=== PATIENT | male | born 1985 | race Caucasian/White ===

== ENCOUNTER 2017-05-27 08:29 | Day surgery (SDC) | payer OTHER ==
[2017-05-27] MEDS ORDERED: Metoclopramide 10 MG/2 ML SDV IVPUSH ONE (09:08)
[2017-05-27] MEDS ORDERED: ceFAZolin 2 GM in Premix Bag 1 BAG IV ONE (09:08)
[2017-05-27] MEDS ORDERED: HYDROmorphone 1 MG/ML Syringe IVPUSH ONE (09:08)
[2017-05-27] MEDS ORDERED: Diphtheria,Pertussis(Acell),Tetanus Vaccine 0.5 ML SDV IM ONE (09:08)
--- NOTE | 2017-05-27 09:13 | EDM.PDOC ---
ED HPI GENERAL MEDICAL PROBLEM - General Chief Complaint: Upper Extremity Injury/Pain Stated Complaint: HAND INJURY Time Seen by Provider: 05/27/17 09:07 Source of Information: Reports: Patient History Limitations: Reports: No Limitations - History of Present Illness INITIAL COMMENTS - FREE TEXT/NARRATIVE: 32-year-old male attends the ED after work related injuries. 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 States mechanical failure with cables on the elevator occurred. This resulted in his hand getting caught. He was wearing a glove. Injuries are to the distal aspects of the right third fourth and fifth fingers. Of note he is right-hand dominant. Doesn't know when his last tetanus toxoid was updated. Injury occurred approximately an hour and a half ago Is meal was at 0430 this a.m. Had a piece of pizza. Denies any other injuries. Denies any allergies. Onset: Today Onset Date: 05/27/17 Onset Time: 07:30 Duration: Hour(s): Location: Reports: Upper Extremity, Right Quality: Reports: Ache (Right hand involving the distal third fourth and fifth fingers), Stabbing, Throbbing Severity: Moderate Improves with: Reports: None Worsens with: Reports: Movement Context: Reports: Trauma (Crush), Other ( type injuries and cables.). 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 [No Known Home Meds] 05/27/17 [History] Past Medical History - Past Health History Medical/Surgical History: Denies Medical/Surgical History Cardiovascular History: Reports: None Respiratory History: Reports: Asthma Gastrointestinal History: Reports: None Genitourinary History: Reports: None Musculoskeletal History: Reports: None Neurological History: Reports: None Dermatologic History: Reports: None Social & Family History - Tobacco Use Smoking Status *Q: Never Smoker Second Hand Smoke Exposure: No - Caffeine Use Caffeine Use: Reports: None - Recreational Drug Use Recreational Drug Use: No - Living Situation & Occupation Occupation: Employed Review of Systems - Review of Systems Review Of Systems: See Below Constitutional: Reports: No Symptoms Eyes: Reports: No Symptoms Ears: Reports: No Symptoms Nose: Reports: No Symptoms Mouth/Throat: Reports: No Symptoms Respiratory: Reports: No Symptoms Cardiovascular: Reports: No Symptoms GI/Abdominal: Reports: No Symptoms Genitourinary: Reports: No Symptoms Musculoskeletal: Reports: Hand Pain Skin: Reports: No Symptoms (See history of present illness) Neurological: Reports: No Symptoms Psychiatric: Reports: No Symptoms ED EXAM, GENERAL - Physical Exam Exam: See Below Exam Limited By: No Limitations General Appearance: Alert, WD/WN, Mild Distress Eye Exam: Bilateral Eye: Normal Inspection Throat/Mouth: Normal Inspection, Normal Lips, Normal Teeth, Normal Oropharynx Head: Atraumatic, Normocephalic Neck: Normal Inspection, Supple, Non-Tender, Full Range of Motion. No: Lymphadenopathy (L), Lymphadenopathy (R) Respiratory/Chest: No Respiratory Distress, Lungs Clear, Normal Breath Sounds, No Accessory Muscle Use Cardiovascular: Normal Peripheral Pulses, Regular Rate, Rhythm, No Edema, No Gallop, No Murmur, No Rub, Other (Mildly hypertensive on arrival.) Peripheral Pulses: 3+: Radial (L), Radial (R) GI/Abdominal: Normal Bowel Sounds, Soft, Non-Tender, No Organomegaly Back Exam: Normal Inspection, Full Range of Motion. No: CVA Tenderness (L), CVA Tenderness (R) Extremities: Other (Examination of the right hand shows completed amputations of the distal third fourth and fifth fingers. The fingernail still intact on the third finger but the pulp space is absent. The fingernails are absent on the other 2 fingers. He will need Station revision of all 3 fingers.) Neurological: Alert, Oriented, CN II-XII Intact, Normal Cognition Psychiatric: Normal Affect, Normal Mood Skin Exam: Warm, Dry, Intact, Normal Color, No Rash Course - Vital Signs Last Recorded V/S: Last Vital Signs Temp 36.9 C 05/27/17 08:35 Pulse 62 05/27/17 08:35 Resp 18 05/27/17 10:55 BP 139/102 H 05/27/17 08:35 Pulse Ox 99 05/27/17 10:55 - Orders/Labs/Meds Orders: Active Orders 24 hr Category Date Time Status Vaccines to be Administered [RC] PER UNIT ROUTINE Care 05/27/17 09:08 Active Dextrose 5%-0.9% NaCl [Dextrose 5%-Normal Saline] 1,000 Med 05/27/17 09:15 Active ml IV ASDIRECTED Schedule Procedure [COMM] Stat Oth 05/27/17 11:16 Ordered Medication Orders Dextrose/Sodium Chloride (Dextrose 5%-Normal Saline) 1,000 mls @ 250 mls/hr IV ASDIRECTED [facility] Last Admin: 05/27/17 10:02 Dose: 250 mls/hr Labs: Laboratory Tests 05/27/17 05/27/17 05/27/17 Range/Units 08:40 08:40 09:00 WBC 5.63 (4.23-9.07) K/mm3 RBC 5.16 (4.63-6.08) M/mm3 Hgb 14.6 (13.7-17.5) gm/L Hct 44.9 (40.1-51.0) % MCV 87.0 (79.0-92.2) fl MCH 28.3 (25.7-32.2) pg MCHC 32.5 (32.2-35.5) g/dl RDW Std Deviation 40.1 (35.1-43.9) fL Plt Count 221 (163-337) K/mm3 MPV 10.8 (9.4-12.3) fl Neutrophils % (Manual) 50 (40-60) % Band Neutrophils % 2 (0-10) % Lymphocytes % (Manual) 41 H (20-40) % Atypical Lymphs % 0 % Monocytes % (Manual) 4 (2-10) % Eosinophils % (Manual) 2 (0.8-7.0) % Basophils % (Manual) 1 (0.2-1.2) Platelet Estimate Adequate RBC Morph Comment Normal Sodium 145 (136-145) mEq/L Potassium 3.9 (3.5-5.1) mEq/L Chloride 109 H (98-107) mEq/L Carbon Dioxide 25 (21-32) mEq/L Anion Gap 14.9 (5-15) BUN 18 (7-18) mg/dL Creatinine 1.2 (0.7-1.3) mg/dL Est Cr Clr Drug Dosing 103.70 mL/min Estimated GFR (MDRD) > 60 (>60) mL/min BUN/Creatinine Ratio 15.0 (14-18) Glucose 96 (74-106) mg/dL Calcium 9.0 (8.5-10.1) mg/dL Total Bilirubin 0.5 (0.2-1.0) mg/dL AST 38 H (15-37) U/L ALT 65 H (16-63) U/L Alkaline Phosphatase 85 (46-116) U/L Total Protein 7.0 (6.4-8.2) g/dl Albumin 3.8 (3.4-5.0) g/dl Globulin 3.2 gm/dL Albumin/Globulin Ratio 1.2 (1-2) Urine Color (Yellow) Urine Appearance (Clear) Urine pH (5.0-8.0) Ur Specific [place] (1.005-1.030) Urine Protein (Negative) Urine Glucose (UA) (Negative) Urine Ketones (Negative) Urine Occult Blood (Negative) Urine Nitrite (Negative) Urine Bilirubin (Negative) Urine Urobilinogen (0.2-1.0) Ur Leukocyte Esterase (Negative) Urine RBC (0-5) /hpf Urine WBC (0-5) /hpf Ur Epithelial Cells (0-5) /hpf Urine Bacteria (FEW) /hpf Urine Mucus (FEW) /hpf Urine Opiates Screen Negative (NEGATIVE) Ur Buprenorphine Scrn Negative (NEGATIVE) Ur Oxycodone Screen Negative (NEGATIVE) Urine Methadone Screen Negative (NEGATIVE) Ur Propoxyphene Screen Negative (NEGATIVE) Ur Barbiturates Screen Negative (NEGATIVE) Ur Tricyclics Screen Negative (NEGATIVE) Ur Phencyclidine Scrn Negative (NEGATIVE) Ur Amphetamine Screen Negative (NEGATIVE) U Methamphetamines Scrn Negative (NEGATIVE) U Benzodiazepines Scrn Negative (NEGATIVE) U Cocaine Metab Screen Negative (NEGATIVE) U Marijuana (THC) Screen Negative (NEGATIVE) 05/27/17 Range/Units 09:00 WBC (4.23-9.07) K/mm3 RBC (4.63-6.08) M/mm3 Hgb (13.7-17.5) gm/L Hct (40.1-51.0) % MCV (79.0-92.2) fl MCH (25.7-32.2) pg MCHC (32.2-35.5) g/dl RDW Std Deviation (35.1-43.9) fL Plt Count (163-337) K/mm3 MPV (9.4-12.3) fl Neutrophils % (Manual) (40-60) % Band Neutrophils % (0-10) % Lymphocytes % (Manual) (20-40) % Atypical Lymphs % % Monocytes % (Manual) (2-10) % Eosinophils % (Manual) (0.8-7.0) % Basophils % (Manual) (0.2-1.2) Platelet Estimate RBC Morph Comment Sodium (136-145) mEq/L Potassium (3.5-5.1) mEq/L Chloride (98-107) mEq/L Carbon Dioxide (21-32) mEq/L Anion Gap (5-15) BUN (7-18) mg/dL Creatinine (0.7-1.3) mg/dL Est Cr Clr Drug Dosing mL/min Estimated GFR (MDRD) (>60) mL/min BUN/Creatinine Ratio (14-18) Glucose (74-106) mg/dL Calcium (8.5-10.1) mg/dL Total Bilirubin (0.2-1.0) mg/dL AST (15-37) U/L ALT (16-63) U/L Alkaline Phosphatase (46-116) U/L Total Protein (6.4-8.2) g/dl Albumin (3.4-5.0) g/dl Globulin gm/dL Albumin/Globulin Ratio (1-2) Urine Color Yellow (Yellow) Urine Appearance Clear (Clear) Urine pH 6.5 (5.0-8.0) Ur Specific [place] 1.025 (1.005-1.030) Urine Protein Negative (Negative) Urine Glucose (UA) Negative (Negative) Urine Ketones Negative (Negative) Urine Occult Blood Negative (Negative) Urine Nitrite Negative (Negative) Urine Bilirubin Negative (Negative) Urine Urobilinogen 0.2 (0.2-1.0) Ur Leukocyte Esterase Negative (Negative) Urine RBC Not seen (0-5) /hpf Urine WBC 0-5 (0-5) /hpf Ur Epithelial Cells Not seen (0-5) /hpf Urine Bacteria Not seen (FEW) /hpf Urine Mucus Few (FEW) /hpf Urine Opiates Screen (NEGATIVE) Ur Buprenorphine Scrn (NEGATIVE) Ur Oxycodone Screen (NEGATIVE) Urine Methadone Screen (NEGATIVE) Ur Propoxyphene Screen (NEGATIVE) Ur Barbiturates Screen (NEGATIVE) Ur Tricyclics Screen (NEGATIVE) Ur Phencyclidine Scrn (NEGATIVE) Ur Amphetamine Screen (NEGATIVE) U Methamphetamines Scrn (NEGATIVE) U Benzodiazepines Scrn (NEGATIVE) U Cocaine Metab Screen (NEGATIVE) U Marijuana (THC) Screen (NEGATIVE) Meds: Medications Generic Name Dose Route Start Last Admin Trade Name Freq PRN Reason Stop Dose Admin Dextrose/Sodium Chloride 1,000 mls @ 250 mls/hr 05/27/17 09:15 05/27/17 10:02 Dextrose 5%-Normal Saline IV 250 mls/hr ASDIRECTED RADHA Administration Discontinued Medications Generic Name Dose Route Start Last Admin Trade Name Freq PRN Reason Stop Dose Admin Diphtheria/Tetanus/Acell Pertussis 0.5 ml 05/27/17 09:08 05/27/17 09:23 Adacel IM 05/27/17 09:09 0.5 ml .ONCE ONE Administration Famotidine 20 mg 05/27/17 10:55 Pepcid IVPUSH 05/27/17 10:56 ONETIME ONE Fentanyl Confirm 05/27/17 11:17 Sublimaze Administered 05/27/17 11:18 Dose 250 mcg .ROUTE .STK-MED ONE Hydromorphone HCl 1 mg 05/27/17 09:08 05/27/17 09:26 Dilaudid IVPUSH 05/27/17 09:09 1 mg ONETIME ONE Administration Hydromorphone HCl 0.5 mg 05/27/17 10:34 05/27/17 10:44 Dilaudid IVPUSH 05/27/17 10:35 0.5 mg NOW STA Administration Cefazolin Sodium/Dextrose 2 gm 50 mls @ 100 mls/hr 05/27/17 09:08 05/27/17 09 :23 / Premix IV 05/27/17 09:37 100 mls/hr ONETIME ONE Administration Lidocaine HCl Confirm 05/27/17 11:17 Xylocaine-Mpf 1% Administered 05/27/17 11:18 Dose 4 mls @ as directed .ROUTE .STK-MED ONE Metoclopramide HCl 10 mg 05/27/17 09:08 05/27/17 09:26 Reglan IVPUSH 05/27/17 09:09 10 mg ONETIME ONE Administration Midazolam HCl Confirm 05/27/17 11:17 Versed 1 Mg/Ml Administered 05/27/17 11:18 Dose 2 mg .ROUTE .STK-MED ONE Propofol Confirm 05/27/17 11:13 Diprivan 20 Ml Administered 05/27/17 11:14 Dose 400 mg .ROUTE .STK-MED ONE Succinylcholine Chloride Confirm 05/27/17 11:17 Quelicin Administered 05/27/17 11:18 Dose 200 mg .ROUTE .STK-MED ONE - Radiology Interpretation Free Text/Narrative:: 32-year-old male presents to the ED with acute work-related injuries to his right distal hand. His hand became entangled and cables pulling the elevator up on a local the ring. This resulted in a crush type injuries to the distal aspect of the right third fourth and fingers with completed applications of the distal tips. The nail still intact on the third finger but the pulp spaces damaged. He will need review and dictation revision of all 3 fingers. T gap will be updated. IV started at 150 mils per hour. He will be given Ancef 1 g IV Dilaudid 1 mg IV and Reglan 10 mg IV. Last meal was around 0 4:30 5:00 this morning. - Re-Assessments/Exams Free Text/Narrative Re-Assessment/Exam: 05/27/17 09:50 x-ray confirms defecation through the mid shafts of the distal phalange ease of the fourth and fifth fingers on the right hand and the ulnar aspect of the distal phalanx of the third finger. I will speak with Dr. Abebe on-call orthopedic surgeon in this regard. 05/27/17: 10:25; spoke with Dr. Bates and he will try and finish up his clinic and then attended the patient in the ED with a view to arranging operative time to repair this fellows amputated digits right hand. Patient is asking for more pain medication will be given Dilaudid [address] Bates has requested that he soak in some Betadine infused saline for 510 minutes and then dressings applied. 05/27/17 11:19 Dr. Abebe is in the department at this time. Plan will be to take the patient to the OR for repeat application revision of the third fourth and fifth fingers on the right hand. Departure - Departure Time of Disposition: 11:23 Disposition: DC/Tfer to [facility] Condition: Fair Clinical Impression: Traumatic amputation of tip of finger of right hand - Discharge Information - My Orders Last 24 Hours: My Active Orders 05/27/17 09:08 Vaccines to be Administered [RC] PER UNIT ROUTINE 05/27/17 09:15 Dextrose 5%-0.9% NaCl [Dextrose 5%-Normal Saline] 1,000 ml IV ASDIRECTED - Assessment/Plan Last 24 Hours: My Active Orders 05/27/17 09:08 Vaccines to be Administered [RC] PER UNIT ROUTINE 05/27/17 09:15 Dextrose 5%-0.9% NaCl [Dextrose 5%-Normal Saline] 1,000 ml IV ASDIRECTED
[2017-05-27] MEDS ORDERED: Dextrose 5%-0.9% NaCl 1,000 ML IV SCH (09:15)
--- NOTE | 2017-05-27 10:26 | CR ---
Right hand: Four views of the right hand were obtained. Comparison: No previous study. Soft tissue and bony amputation is seen within the distal aspects of the third through fifth fingers. Small detached bony fragment is within the distal soft tissues within all 3 digits. No additional abnormality is noted. Impression: 1. Soft tissue and bony amputation within the distal third through fifth fingers. Small detached bony density remains within the distal soft tissues of all 3 digits. 2. No additional finding is seen. Diagnostic code #3
[2017-05-27] MEDS ORDERED: HYDROmorphone 0.5 MG/0.5 ML Syringe IVPUSH STA (10:34)
[2017-05-27] MEDS ORDERED: Famotidine 20 MG/2 ML SDV IVPUSH ONE (10:55)
--- NOTE | 2017-05-27 10:55 | PCM.PREANE ---
Preanesthetic Assessment - Anesthesia/Transfusion/Family Hx Anesthesia History: Prior Anesthesia Without Reaction Family History of Anesthesia Reaction: No Transfusion History: No Prior Transfusion(s) Intubation History: Unknown - Review of Systems General: No Symptoms Pulmonary: No Symptoms, Other (Asthma, controlled. ) Gastrointestinal: No Symptoms Neurological: No Symptoms Other: Reports: None - Physical Assessment NPO Status Date: 05/27/17 NPO Status Time: 04:30 (Pizza) O2 Sat by Pulse Oximetry: 99 Respiratory Rate: 18 Vital Signs: Last Vital Signs Temp 36.9 C 05/27/17 08:35 Pulse 62 05/27/17 08:35 Resp 18 05/27/17 08:35 BP 139/102 H 05/27/17 08:35 Pulse Ox 99 05/27/17 08:35 Height: 1.88 m Weight: 90.718 kg ASA Class: 1E Mental Status: Alert & Oriented x3 Airway Class: Mallampati = 1 Dentition: Reports: Normal Dentition Thyro-Mental Finger Breadths: 3 Mouth Opening Finger Breadths: 3 ROM/Head Extension: Full Lungs: Clear to Auscultation, Normal Respiratory Effort Cardiovascular: Regular Rate, Regular Rhythm - Lab Values: Laboratory Last Values WBC 5.63 K/mm3 (4.23-9.07) 05/27/17 08:40 RBC 5.16 M/mm3 (4.63-6.08) 05/27/17 08:40 Hgb 14.6 gm/L (13.7-17.5) 05/27/17 08:40 Hct 44.9 % (40.1-51.0) 05/27/17 08:40 MCV 87.0 fl (79.0-92.2) 05/27/17 08:40 MCH 28.3 pg (25.7-32.2) 05/27/17 08:40 MCHC 32.5 g/dl (32.2-35.5) 05/27/17 08:40 RDW Std Deviation 40.1 fL (35.1-43.9) 05/27/17 08:40 Plt Count 221 K/mm3 (163-337) 05/27/17 08:40 MPV 10.8 fl (9.4-12.3) 05/27/17 08:40 Neutrophils % (Manual) 50 % (40-60) 05/27/17 08:40 Band Neutrophils % 2 % (0-10) 05/27/17 08:40 Lymphocytes % (Manual) 41 % (20-40) H 05/27/17 08:40 Atypical Lymphs % 0 % 05/27/17 08:40 Monocytes % (Manual) 4 % (2-10) 05/27/17 08:40 Eosinophils % (Manual) 2 % (0.8-7.0) 05/27/17 08:40 Basophils % (Manual) 1 (0.2-1.2) 05/27/17 08:40 Platelet Estimate Adequate 05/27/17 08:40 RBC Morph Comment Normal 05/27/17 08:40 Sodium 145 mEq/L (136-145) 05/27/17 08:40 Potassium 3.9 mEq/L (3.5-5.1) 05/27/17 08:40 Chloride 109 mEq/L (98-107) H 05/27/17 08:40 Carbon Dioxide 25 mEq/L (21-32) 05/27/17 08:40 Anion Gap 14.9 (5-15) 05/27/17 08:40 BUN 18 mg/dL (7-18) 05/27/17 08:40 Creatinine 1.2 mg/dL (0.7-1.3) 05/27/17 08:40 Est Cr Clr Drug Dosing 103.70 mL/min 05/27/17 08:40 Estimated GFR (MDRD) > 60 mL/min (>60) 05/27/17 08:40 BUN/Creatinine Ratio 15.0 (14-18) 05/27/17 08:40 Glucose 96 mg/dL (74-106) 05/27/17 08:40 Calcium 9.0 mg/dL (8.5-10.1) 05/27/17 08:40 Total Bilirubin 0.5 mg/dL (0.2-1.0) 05/27/17 08:40 AST 38 U/L (15-37) H 05/27/17 08:40 ALT 65 U/L (16-63) H 05/27/17 08:40 Alkaline Phosphatase 85 U/L (46-116) 05/27/17 08:40 Total Protein 7.0 g/dl (6.4-8.2) 05/27/17 08:40 Albumin 3.8 g/dl (3.4-5.0) 05/27/17 08:40 Globulin 3.2 gm/dL 05/27/17 08:40 Albumin/Globulin Ratio 1.2 (1-2) 05/27/17 08:40 Urine Color Yellow (Yellow) 05/27/17 09:00 Urine Appearance Clear (Clear) 05/27/17 09:00 Urine pH 6.5 (5.0-8.0) 05/27/17 09:00 Ur Specific [place] 1.025 (1.005-1.030) 05/27/17 09:00 Urine Protein Negative (Negative) 05/27/17 09:00 Urine Glucose (UA) Negative (Negative) 05/27/17 09:00 Urine Ketones Negative (Negative) 05/27/17 09:00 Urine Occult Blood Negative (Negative) 05/27/17 09:00 Urine Nitrite Negative (Negative) 05/27/17 09:00 Urine Bilirubin Negative (Negative) 05/27/17 09:00 Urine Urobilinogen 0.2 (0.2-1.0) 05/27/17 09:00 Ur Leukocyte Esterase Negative (Negative) 05/27/17 09:00 Urine RBC Not seen /hpf (0-5) 05/27/17 09:00 Urine WBC 0-5 /hpf (0-5) 05/27/17 09:00 Ur Epithelial Cells Not seen /hpf (0-5) 05/27/17 09:00 Urine Bacteria Not seen /hpf (FEW) 05/27/17 09:00 Urine Mucus Few /hpf (FEW) 05/27/17 09:00 Urine Opiates Screen Negative (NEGATIVE) 05/27/17 09:00 Ur Buprenorphine Scrn Negative (NEGATIVE) 05/27/17 09:00 Ur Oxycodone Screen Negative (NEGATIVE) 05/27/17 09:00 Urine Methadone Screen Negative (NEGATIVE) 05/27/17 09:00 Ur Propoxyphene Screen Negative (NEGATIVE) 05/27/17 09:00 Ur Barbiturates Screen Negative (NEGATIVE) 05/27/17 09:00 Ur Tricyclics Screen Negative (NEGATIVE) 05/27/17 09:00 Ur Phencyclidine Scrn Negative (NEGATIVE) 05/27/17 09:00 Ur Amphetamine Screen Negative (NEGATIVE) 05/27/17 09:00 U Methamphetamines Scrn Negative (NEGATIVE) 05/27/17 09:00 U Benzodiazepines Scrn Negative (NEGATIVE) 05/27/17 09:00 U Cocaine Metab Screen Negative (NEGATIVE) 05/27/17 09:00 U Marijuana (THC) Screen Negative (NEGATIVE) 05/27/17 09:00 - Allergies Allergies/Adverse Reactions: Allergies Allergy/AdvReac Type Severity Reaction Status Date / Time No Known Allergies Allergy Verified 05/27/17 08:35 - Acknowledgements Anesthesia Type Planned: General Anesthesia Pt an Appropriate Candidate for the Planned Anesthesia: Yes Alternatives and Risks of Anesthesia Discussed w Pt/Guardian: Yes Pt/Guardian Understands and Agrees with Anesthesia Plan: Yes PreAnesthesia Questionnaire - Past Health History Medical/Surgical History: Denies Medical/Surgical History Cardiovascular History: Reports: None Respiratory History: Reports: Asthma Gastrointestinal History: Reports: None Genitourinary History: Reports: None Musculoskeletal History: Reports: None Neurological History: Reports: None Dermatologic History: Reports: None - SUBSTANCE USE Smoking Status *Q: Never Smoker Second Hand Smoke Exposure: No Recreational Drug Use History: No - HOME MEDS Home Medications: Home Meds . [No Known Home Meds] 05/27/17 [History] - CURRENT (IN HOUSE) MEDS Current Meds: Current Medications Dextrose/Sodium Chloride (Dextrose 5%-Normal Saline) 1,000 mls @ 250 mls/hr IV ASDIRECTED [facility] Last Admin: 05/27/17 10:02 Dose: 250 mls/hr Discontinued Medications Diphtheria/Tetanus/Acell Pertussis (Adacel) 0.5 ml IM .ONCE ONE Stop: 05/27/17 09:09 Last Admin: 05/27/17 09:23 Dose: 0.5 ml Hydromorphone HCl (Dilaudid) 1 mg IVPUSH ONETIME ONE Stop: 05/27/17 09:09 Last Admin: 05/27/17 09:26 Dose: 1 mg Hydromorphone HCl (Dilaudid) 0.5 mg IVPUSH NOW STA Stop: 05/27/17 10:35 Last Admin: 05/27/17 10:44 Dose: 0.5 mg Cefazolin Sodium/Dextrose 2 gm (/ Premix) 50 mls @ 100 mls/hr IV ONETIME ONE Stop: 05/27/17 09:37 Last Admin: 05/27/17 09:23 Dose: 100 mls/hr Metoclopramide HCl (Reglan) 10 mg IVPUSH ONETIME ONE Stop: 05/27/17 09:09 Last Admin: 05/27/17 09:26 Dose: 10 mg
[2017-05-27] MEDS ORDERED: Propofol 200 MG/20 ML SDV ONE (11:13)
[2017-05-27] MEDS ORDERED: fentaNYL 250 MCG/5 ML SDV ONE (11:17)
[2017-05-27] MEDS ORDERED: Midazolam 1 MG/ML 2 ML SDV ONE (11:17)
[2017-05-27] MEDS ORDERED: Succinylcholine 200 MG/10 ML MDV ONE (11:17)
[2017-05-27] MEDS ORDERED: Lidocaine 1% 4 ML ONE (11:17)
[2017-05-27] MEDS ORDERED: Acetaminophen/oxyCODONE 325-5 MG Tab PO PRN (11:31)
[2017-05-27] MEDS ORDERED: Ondansetron 4 MG/2 ML SDV IVPUSH PRN (11:31)
[2017-05-27] MEDS ORDERED: HYDROmorphone 0.5 MG/0.5 ML Syringe IVPUSH PRN ×2 (11:31→16:21)
[2017-05-27] MEDS ORDERED: cefTRIAXone 1 GM in Sodium Chloride 0.9% 100 ML IV ONE ×2 (11:31→18:13)
[2017-05-27] MEDS ORDERED: Ketorolac 30 MG/ML SDV IVPUSH PRN (11:31)
[2017-05-27] MEDS ORDERED: Morphine 15 MG Tab.ER PO SCH (11:45)
[2017-05-27] MEDS: cefTRIAXone 1 GM in Sodium Chloride 0.9% 100 ML IV ONE ×2 (11:58→18:26)
[2017-05-27] MEDS ORDERED: Iodine/Sodium Iodide 2% Tincture 30 ML Bottle ONE (13:30)
[2017-05-27] MEDS ORDERED: ceFAZolin 1 GM Vial ONE (16:05)
[2017-05-27] MEDS ORDERED: HYDROmorphone 1 MG/ML Syringe ONE (16:13)
[2017-05-27] MEDS ORDERED: fentaNYL 100 MCG/2 ML SDV IVPUSH PRN (16:21)
[2017-05-27] MEDS ORDERED: Haloperidol Lactate 5 MG/ML SDV IVPUSH ONE (16:21)
[2017-05-27] MEDS ORDERED: Ondansetron 4 MG/2 ML SDV ONE (16:30)
[2017-05-27] MEDS ORDERED: Dexamethasone 4 MG/ML 5 ML MDV ONE (16:30)
[2017-05-27] MEDS: Bupivacaine 0.5% 30 ML SDV ONE ×2 (16:32→17:19)
[2017-05-27] MEDS ORDERED: Lactated Ringers 1,000 ML ONE (17:17)
--- NOTE | 2017-05-27 17:55 | PCM.POSTAN ---
POST ANESTHESIA ASSESSMENT - MENTAL STATUS Mental Status: Somnolent - VITAL SIGNS Pulse Rate: 72 SaO2: 99 Resp Rate: 11 Blood Pressure: 133/88 Temperature: 37.3 C - RESPIRATORY Respiratory Status: Respiratory Rate WNL, Airway Patent, O2 Saturation Stable, Supplemental Oxygen - CARDIOVASCULAR CV Status: Pulse Rate WNL, Blood Pressure Stable - GASTROINTESTINAL GI Status: No Symptoms - PAIN Pain Score: 0 - POST OP HYDRATION Hydration Status: Adequate & Stable
--- NOTE | 2017-05-27 18:15 | HP ---
DATE OF ADMISSION: 05/27/2017 HISTORY: This is the first orthopedic outpatient admission for surgery for this 32-year- old male who is being admitted with acute crush injury and traumatic amputation of the distal tips of the third, fourth, and fifth digits of the right hand. The patient suffered this injury while working today when his fingers became crushed in the worksite area, where after the crush injury, the patient was brought into the emergency room, evaluated, and is now being scheduled for outpatient surgical treatment in the form of irrigation and debridement and repair and reconstruction of the distal amputation sites of the third, fourth, and fifth digits of the right hand. The patient suffered no other injury other than this hand injury, and the procedure was outlined to him. He understands the procedure and also the high risk of possible infection with this type of injury. He understands that and has consented to the surgery. ALLERGIES: No known drug allergies. PAST MEDICAL HISTORY: He has been a relatively healthy 32-year-old male who had a previous history of asthma, where he states he uses inhaler occasionally. CURRENT MEDICATIONS: Currently, on no medications. PAST SURGICAL HISTORY: Positive, previous appendectomy with no anesthesia problems or complications. SOCIAL HISTORY: The patient is a nonsmoker and nondrinker. Denies any bleeding or blood clot history. PHYSICAL EXAMINATION: GENERAL: Today, reveals a well-developed, well-nourished 32-year-old male in [id number] distress HEAD, EYES, EARS, NOSE AND THROAT: Normocephalic. NECK: Supple. CHEST: Clear. COR: Regular rate. ABDOMEN: Soft. : Intact. EXTREMITIES: Examination of the right hand reveals complete loss of the soft tissues at the nail level of the small finger and ring finger of the right hand along with severe laceration of the distal tip of the middle finger at the nail level. RADIOGRAPHIC STUDIES: The x-rays reveal soft tissue loss of the distal portion of the ring finger and small finger of the right hand and traumatic soft tissue disruption of the distal tip of the middle finger. OVERALL IMPRESSION: Crush injury with traumatic amputation, complete of the fourth and fifth digits of the right hand and partial to severe of the distal tip of the third digit of the right hand. PLAN: Plan is for the patient to undergo surgical irrigation and debridement and reconstructive surgery of the right hand amputation site and crush injury lacerations. Procedure has been outlined to the patient. He understands the procedure and has consented to surgery. TAHIR /[id number]
--- NOTE | 2017-05-28 08:42 | CONS ---
CONSULTING PHYSICIAN: David Abebe MD DATE OF CONSULTATION: 05/27/2017 HISTORY: This is the Orthopedic consultation called for by Dr. Alcantara, emergency room physician, for evaluation of a right hand crush injury with severe laceration and traumatic amputation of the distal portions of the third, fourth, and fifth digits of the hand. The patient suffered injury this morning while working and after the injury was brought in the emergency room for evaluation. He is now being consulted for possible surgical treatment of the amputations secondary to the crush injury. He notes no other injuries to the hand other than the traumatic injury from the work site itself. ALLERGIES: No known drug allergies. PAST MEDICAL HISTORY: He has been a relatively healthy 32-year-old male, currently on occasional asthma inhaler. PAST SURGICAL HISTORY: Positive, previous appendix. Notes no anesthesia problems or complications. PHYSICAL EXAMINATION: Examination of the right hand reveals a crush injury with lacerations and loss of the distal portion of the small finger and ring finger of the right hand and partial to almost full amputation of the distal tip of the middle finger of the right hand. RADIOGRAPHIC STUDIES: The x-rays were reviewed. This shows a loss of the soft tissue envelope of the distal tip of the ring finger and small finger at the middle and distal phalanx level and also soft tissue changes involving the distal tip of the middle finger. OVERALL IMPRESSION: Crush injury of the right hand with traumatic amputation of the distal tip of the small digit ring finger and partial middle finger. PLAN: Plan will be for the patient to be scheduled for outpatient surgical treatment. The procedure was outlined in the emergency room with the patient who understands and consented to it. MMODAL /[id number]
--- NOTE | 2017-05-28 08:42 | OR ---
DATE OF OPERATION: 05/27/2017 SURGEON: David Abebe MD PREOPERATIVE DIAGNOSIS: 1. Traumatic crush injury, distal amputation, right small finger at nail bed level. 2. Traumatic crush injury with traumatic amputation distal tip right ring finger nail bed level. 3. Crush injury with traumatic injury to the distal tip of right middle finger. POSTOPERATIVE DIAGNOSIS: 1. Traumatic crush injury, distal amputation, right small finger at nail bed level. 2. Traumatic crush injury with traumatic amputation distal tip right ring finger nail bed level. 3. Crush injury with traumatic injury to the distal tip of right middle finger. ANESTHESIA: General. OPERATION PERFORMED: 1. Irrigation, debridement, reconstruction, revision of amputation site right small finger. 2. Irrigation, debridement, revision, and reconstruction of distal amputation site ring finger. 3. Irrigation, debridement, revision, and reconstruction surgery of distal tip right middle finger. DESCRIPTION OF PROCEDURE: The patient was taken to the operative room in a supine position, placed under general anesthesia. The right arm was thoroughly scrubbed. 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 Meticulous scrubbing was carried out to remove as much oil as possible. Once that was accomplished, then a standard prepping was carried out for an open injury, and after prepping, the operation then proceeded with draping and then the surge lavage was then used to clean the distal tips of the fingers. With the spray being placed on each tip and scrubbed, any remaining type of debris and contamination was hopefully removed. Once that was completed, the operation began with the middle finger where the amputation had gone through the tip right at the level of the distal end of the distal phalanx which was easily seen. The nail bed was then trimmed back slightly in the nail itself. The flap that remained was trimmed such that it could be brought up and sutured to the undersurface of the nail. Once that was completed, the operation then proceeded to the ring finger where the amputation went through at the level of the beginning of the nail bed area with complete loss of the nail. The phalanx was exposed and comminuted. The operation had proceeded with excision of the nail bed by sharp dissection. Once that was completed, the midportion of the distal phalanx was then removed such that the remaining flap of soft tissues on the volar aspect could be brought up and cut to cover the end of the bone. Once the bone was removed, again irrigation was then used to allow to thoroughly clean. The skin was then sutured to the dorsal surface at the level of the removal of the nail bed. This closure proceeded very nicely. The dog-ears were removed and closed, and once that was complete, the operation had proceeded to the small finger. A similar injury was noted in the small finger. The nail was completely gone and most of the nail bed. The nail bed itself for forming the nail was still intact. This was sharply dissected and removed. Once that was completed, the phalanx was then trimmed back to a nice smooth surface such that the remaining portion of the volar skin could be brought over the ends. The operation proceeded with minimal debulking of the volar soft tissue and fatty tissue on the bed itself. Thorough irrigation was used with the surge lavage and then the operation proceeded with closure with the skin being brought and closed to the dorsal aspect. Dog-ears were still present. These were removed and closed. The operation proceeded with final irrigation of the tips of the fingers and inspection. Good closure was obtained at all 3 digits. The operation proceeded with application of Xeroform dressings and a short-arm splint. The patient tolerated this procedure well. He left the operating room in stable condition to his room for recovery. ESTIMATED BLOOD LOSS: MMSHIRA /[id number]
== END 2017-05-27 19:20 | disposition home or self-care (01) ==
LOC: JD.ED 08:29 → JD.SDS 10:18
PROVIDERS: ATTEND Specialist
DX: S68.612A Complete traumatic transphalangeal amputation of right middle finger, initial encounter (principal); S68.614A Complete traumatic transphalangeal amputation of right ring finger, initial encounter; S68.616A Complete traumatic transphalangeal amputation of right little finger, initial encounter; W24.0XXA Contact with lifting devices, not elsewhere classified, initial encounter; Y92.65 Oil rig as the place of occurrence of the external cause
CPT/HCPCS: 26236; 36415; 73130; 80053; 80306; 81001; 85025; 90471; 90715; 96361; 96365; 96375; 96376; 99285; A9270; J0690; J0696; J1100; J1170; J2250; J2405; J2765; J7030; J7042; J7120; 01830; J0330; J2704; J3010